=== PATIENT | female | born 1980 | race Caucasian/White ===

== ENCOUNTER 2016-09-16 02:25 | Inpatient (IN) | payer OTHER ==
[~2016-09-16] VITALS: Ht 162.6 cm; Wt 87.1 kg
[~2016-09-16 02:25] MED LIST: PREN-12 PO
[2016-09-16] MEDS ORDERED: Lactated Ringer's 1,000 ML IV PRN (02:54)
[2016-09-16] MEDS ORDERED: Methylergonovine 0.2 mg/mL Inj IM PRN ×2 (02:55→14:25)
[2016-09-16] MEDS ORDERED: Oxytocin 10 Unit/mL Inj IM PRN ×2 (02:55→14:25)
[2016-09-16] MEDS ORDERED: Hemorrhage Kit, Post Partum XX ONE ×2 (02:55→14:25)
[2016-09-16] MEDS ORDERED: fentaNYL-PF 50 mCg/mL 2 mL Inj IVPUSH PRN (02:55)
[2016-09-16] MEDS ORDERED: Oxytocin 30 Units/500 mL LR 30 UNITS in IV Premix 1 EACH IV PRN ×2 (02:55→14:25)
[2016-09-16] MEDS ORDERED: Carboprost 250 mCg/mL Inj IM PRN ×2 (02:55→14:25)
[2016-09-16] MEDS ORDERED: Sodium Chloride LOK Flush 10 mL Syringe IVFLUSH PRN (02:55)
[2016-09-16] MEDS ORDERED: Pantoprazole 20 mg ER24 Tablet PO ONE (03:10)
[2016-09-16 03:25] LABS: Mean Corpuscular Volume 89.8 fL (81-100)
[2016-09-16] MEDS ORDERED: fentaNYL 2 mCg/mL-Bupivicaine 0.125% 100 mL Premix EPIDURAL ONE (04:33)
[2016-09-16] MEDS: Lactated Ringer's 1,000 ML IV SCH ×5 (05:28→22:24)
[2016-09-16] MEDS ORDERED: Lactated Ringer's 500 ML IV ONE (05:28)
[2016-09-16] MEDS ORDERED: Atropine 1 mg/10 mL (Code) Syringe IVPUSH PRN (05:30)
[2016-09-16] MEDS ORDERED: fentaNYL 2 mCg/mL-Bupiv 0.125% 100 ML EPIDURAL SCH (05:30)
[2016-09-16] MEDS ORDERED: EPHEDrine Sulfate 50 mg/mL Inj IVPUSH PRN (05:30)
[2016-09-16] MEDS ORDERED: Ondansetron 2 mg/mL 2 mL Inj IVPUSH PRN (05:30)
--- NOTE | 2016-09-16 05:31 | PCM.HPANE ---
Patient Data Surgeon Admitting Provider:Chris Blackwell MD Attending Provider:Chris Blackwell MD Primary Care Physician:Chris Blackwell MD Other Provider:Min Olmedo Anesthesia Reason for Visit Term Labor TERM LABOR Ht/WT & BMI Body Mass Index Allergies Coded Allergies: No Known Allergies (Unverified , 03/24/16) Past Anesthesia History Anesthesia History: Denies:: Abnormal Airway, Anesthesia Reactions, Difficult Intubation, Fam Anesthesia Reaction, Fam Malignant Hypertherm, Malignant Hyperthermia Diabetes History Hx Diabetes?: No MRSA MRSA: No Medications Hypertension Medication: No Reported Medications Vit W-Ca,Fe,FA(<1 mg) ( Formula)1 Each Tablet1 Each PO DAILY 02/08/16 History History of ENT Problems?: No HEENT History: Denies:: Abnormal Airway Cataracts Difficult Intubation Dysphagia Glaucoma Hearing Problem Sinus Problem TMJ Denture Type: None Teeth Condition: Within Normal Limits Hx of Heart Problems?: No Cardiovascular History: Denies:: AICD Abdominal Aortic Aneurism Atrial Fibrillation Cardiac Surgery Chest Pain Congestive Heart Failure Coronary Artery Disease Edema Heart Murmur Hypertension Irregular Heartbeat Pacemaker Peripheral Vascular Rheumatic Fever Thrombophlebitis Valvular Heart Disease Hx of Respiratory Problem?: No Respiratory History: Denies:: Asthma COPD Chest Surgery Cough Dyspnea Emphysema Hemoptysis Oxygen Administration Pneumonia Pulmonary Embolism Tuberculosis Use of C-PAP Machine Use of Inhalers / NEBS Hx Neurologic Problems?: No Neurological History: Denies:: Alzheimer's Disease CVA Dementia Dizziness Headaches Multiple Sclerosis Parkinson's Disease Peripheral Neuropathy Seizures TIA Hx of GI Problems?: No Gastrointestinal History: Denies:: Cirrhosis Diverticulitis Gall Bladder Disease Gastroesphageal Reflux Gastrointestinal Bleeding Heartburn Hepatitis Hiatal Hernia Liver Disease Rectal Bleeding Hx of Problems?: No Genitourinary History: Denies:: HX of Hemodialysis Kidney Stones Urinary Tract Infection Female Hx: Positive for:: Currently Hx Musculoskeletal Problems?: No Hx Surgeries?: Yes (WISDOM TEETH AND DNC) Hx Diabetes: No Hx Alcohol Use: NoHx Substance Use: No Smoking Status: Unknown if Ever Smoker Have You Smoked inLast 12 mo: Yes (Pt states a few daily) Stop/Bang LEANNE Risk Assessment: Low Risk, <3 Yes Risk Assessment Category Category 1A: Patient has history of documented sleep apnea, and HAS NOT received any narcotic, sedative or anesthesia administration during this stay. Category 1B: Patient has history of documented sleep apnea, and HAS received any narcotic , sedative or anesthesia administration during this stay Category 2: Patient has SUSPECTED Obstructive Sleep Apnea, and HAS received any narcotic , sedative or anesthesia administration during this stay. Category 3: Patient has SUSPECTED Obstructive Sleep Apnea and HAS NOT received narcotic, sedative or anesthesia administration during this stay. Category 4: Outpatient in Procedural Areas with known sleep apnea or who screen positive for High Risk via the STOP/BANG questionnaire. Exam Exam General Appearance: Alert HEENT/AIRWAY: MP 1 Lungs: Clear to Auscultation Heart: Exam Unremarkable Meds/Labs/Diagnostics Admission Meds Current Medications Pantoprazole (Protonix) 20 mg OT ONCE PO Last administered on 09/16/16t 03:56 ; Start 09/16/16 at 03:10; Stop 09/16/16 at 03:11; Status DC Labs Test 09/16/16 03:10 White Blood Count 11.8th/mm3 (3.8-10.1) Red Blood Count 4.52mil/mm3 (3.90-5.20) Hemoglobin 14.0g/dL (12.0-15.6) Hematocrit 40.6% (35.0-46.0) Mean Corpuscular Volume 89.8fL (81-100) Mean Corpuscular Hemoglobin 31.0pg (27.0-35.0) Mean Corpuscular Hemoglobin Concent 34.5% (32.0-37.0) Red Cell Distribution Width 14.0% (12.3-15.4) Platelet Count 194bil/L (150-400) Plan Impression Patient chart reviewed, patient interviewed and anesthestic plan with risks, benefits, and alternatives discussed, and informed consent obtained. NPO per Anesth. Guidelines: Yes ASA Physical Status: ASA1 Normal Healthy Anesthetic Plan: Epidural Bene/Risks/Altern/Consents: Yes HP Complete Prior to Induction: Yes Carlos Osullivan MD September 16, 2016 05:31
[2016-09-16] MEDS ORDERED: Witch Hazel-Glycerin Pads TOPICAL PRN (14:25)
[2016-09-16] MEDS ORDERED: LANOlin HPA 7 Gm Ointment TOPICAL PRN (14:25)
[2016-09-16] MEDS ORDERED: HYDROcodone-APAP 5-325 mg Tablet PO PRN (14:25)
[2016-09-16] MEDS ORDERED: Benzocaine (Dermoplast) 20% 60 Gm Spray TOPICAL PRN (14:25)
--- NOTE | 2016-09-16 14:31 | PCM.OBVAG ---
Vaginal Delivery Date of Service September 16, 2016 Pre Operative Diagnosis Pre Operative Diagnosis at term with ROM Post Operative Diagnosis Post Operative Diagnosis over intact perineum Procedure Obstetical Procedure: Normal Spontaneous Vaginal Delivery Indication for Procedure Induction: Active labor, SROM, Progressed normally through labor Findings Obstetrical Findings: [place] (Female), Cord (3 Vessel), Presentation (EMILE), 1 minute (8), 5 minutes (9), Placenta (Intact/Normal), Perineal Laceration Analgesia/Medications Obstetrical Anesthesia: Epidural Post Procedure Plan Post delivery Condition: Mom stable Chris Blackwell MD September 16, 2016 14:31
[2016-09-17] MEDS: Lactated Ringer's 1,000 ML IV SCH ×3 (05:28→14:24)
[2016-09-17 06:52] LABS: Mean Corpuscular Hemoglobin 30.7 pg (27.0-35.0); Mean Corpuscular Volume 87.5 fL (81-100)
[2016-09-17] MEDS ORDERED: Measles-Mumps-Rubella Vaccine 0.5 mL Inj SUBQ ONE (15:20)
--- NOTE | 2016-09-17 15:21 | PCM.PNOBPP ---
Subjective Date of Service September 17, 2016 Post : Spontaneous Vaginal Delivery Lochia: Normal Pain Management: PO pain meds, Good Pain Control Gastrointestinal: Good Appetite, No N/V Postop Activity: Ambulating Independently Labs Laboratory Tests 09/17/16 06:20: White Blood Count 14.5, Red Blood Count 3.84, Hemoglobin 11.8, Hematocrit 33.6, Mean Corpuscular Volume 87.5, Mean Corpuscular Hemoglobin 30.7, Mean Corpuscular Hemoglobin Concent 35.1, Red Cell Distribution Width 14.1, Platelet Count 190 Exam Vital Signs Vital Signs: VS reviewed, stable Exam General: Alert Additional Information No other formal exam today. OB Post Assessment/Plan Pain Evaluation: Adequate Pain Control Post plan: Continue routine post care Chris Blackwell MD September 17, 2016 15:21
--- NOTE | 2016-09-18 07:23 | PCM.DC.OB ---
Obstetrical Discharge Summary Date of Service September 18, 2016 Date of hospital admission September 16, 2016 at 02:45 Date of Discharge: September 18, 2016 Providers Admitting Physician: Chris Blackwell MD Primary Care Physician: Chris Blackwell MD Attending Physician: Chris Blackwell MD Diagnosis at Time of Discharge , status post normal spontaenous vaginal delivery. Problems: (1) Qualifiers: Weeks of gestation: 40 weeks Qualified Code: Z3A.40 - 40 weeks gestation of Status: Resolved ICD Code: Z33.1 Invasive procedures Brief History and Physical: 35yo with ROM, active contractions. complicated by social issues including housing, poor family support. from FOB. Medical history pertinent for anxiety disorder, HSV (received acyclovir prophylaxis.), tobacco use. Unremarkable other hx, and exam. Vit W-Ca,Fe,FA(<1 mg) ( Formula) 1 Each Tablet 1 EACH PO DAILY (Reported) Discharge Medications: Ibuprofen, vitamins Discharge Diet: No restrictions Discharge Activity-General: Pelvic Rest, Try not to overdue, Be up and about, Balance rest and activity, Activity as pain allows, Activity as energy allows Chris Blackwell MD September 18, 2016 07:23
[2016-09-18] MEDS ORDERED: IBUP800T28 PO (07:25)
[2016-09-18] MEDS ORDERED: PREN-12 PO (07:25)
--- NOTE | 2016-09-18 07:25 | PCM.DIOB ---
Obstetrical Disch Instruction Dates of Hospitalization Date of Hospital Admission September 16, 2016 at 02:45 Providers Admitting Physician: Chris Blackwell MD Primary Care Physician: Chris Blackwell MD Attending Physician: Chris Blackwell MD Discharge Diagnosis Problems: (1) Qualifiers: Weeks of gestation: 40 weeks Qualified Code: Z3A.40 - 40 weeks gestation of Plan: Doing well after delivery, baby to be kept due to jaundice and cephalohematoma Status: Resolved ICD Code: Z33.1 Diet Discharge Diet: No restrictions Activity Discharge Activity-General: Pelvic Rest for 6 weeks, Try not to overdue, Be up and about, Balance rest and activity, Activity as pain allows, Activity as energy allows Dressing and Incisional Care Hygiene: May shower, Perineal care, Sitz bath, Dermoplast spray, Witch Charlette pads Follow Up Plan Follow-up appointment: Weeks (6) Call your provider for: Fever or Chills, Shortness of breath, Heavy vaginal bleeding, Heavy bleeding, Epigastric pain, Excessive constipation, Vaginal discomfort, Red painful breasts Chris Blackwell MD September 18, 2016 07:25
[2016-09-18 14:39] VITALS: BP 110/69; PULSE 71; RESP 18
== END 2016-09-18 16:28 | disposition home or self-care (01) | DRG 560 ==
LOC: FBCO 02:25 → FBC 02:45
PROVIDERS: ADMIT Family Medicine; ATTEND Family Medicine
PROC: 10E0XZZ Delivery of Products of Conception, External Approach (ICD-10-PCS; principal; 2016-09-16)
PROC: 0HQ9XZZ Repair Perineum Skin, External Approach (ICD-10-PCS; 2016-09-16)
DX: O70.0 First degree perineal laceration during delivery (principal); O98.52 Other viral diseases complicating childbirth; B00.9 Herpesviral infection, unspecified; O99.334 Smoking (tobacco) complicating childbirth; F17.210 Nicotine dependence, cigarettes, uncomplicated; Z3A.40 40 weeks gestation of pregnancy; Z37.0 Single live birth